=== PATIENT | male | born 1985 | race Caucasian/White ===

== ENCOUNTER 2020-07-29 18:45 | Emergency (ER) | payer OTHER ==
[2020-07-29 18:53] VITALS: RESP 18; TEMP 98.5
[2020-07-29] MEDS ORDERED: LIDOCAINE 1% INJ 10MG/ML (20 ML MDV) SQ ONE (19:11)
--- NOTE | 2020-07-29 19:44 | CT ---
EXAMINATION TYPE: CT brain cspine wo con DATE OF EXAM: 07/29/2020 COMPARISON: None HISTORY: fall, right orbital laceration, headache CT DLP: 1338.5 mGycm Automated exposure control for dose reduction was used. Ventricles and sulci appear normal. There is no mass effect nor midline shift. There is no sign of in tracranial hemorrhage. The calvarium is intact. There is no evidence of cerebral edema. Sella turcica appears normal. There is normal aeration of the mastoid sinuses. Cervical vertebra have normal spacing and alignment. Posterior elements are intact. Facet joints are normal. Prevertebral soft tissues appear normal. The tongue appears normal. Epiglottis is normal. There is normal aeration of the paranasal sinuses. There is no evidence of orbital mass. Orbital jessy ins are intact. Zygomatic arches appear normal. IMPRESSION: Negative CT scan of the brain. Negative CT scan cervical spine.
--- NOTE | 2020-07-29 20:00 | ED ---
Fall HPI - General Chief Complaint: Fall Stated Complaint: fall, facial lac Time Seen by Provider: 07/29/20 18:58 Source: patient Mode of arrival: ambulatory - History of Present Illness Initial Comments: 34-year-old male presents to emergency department with a chief complaint of laceration. Patient reports she fell on the ice earlier today. Patient states he slipped and injured the right side of his head. He denies any loss of consciousness but does feels occasional light headedness but no dizziness. He denies any blurry vision, once the weakness paresthesias. Also reports a laceration to the right periorbital region. Denies taking medication to alleviate the symptoms. Denies alleviating factors. Tetanus up-to-date. - Related Data Allergies Allergy/AdvReac Type Severity Reaction Status Date / Time No Known Allergies Allergy Verified 07/29/20 18:53 Review of Systems ROS Statement: Those systems with pertinent positive or pertinent negative responses have been documented in the HPI. ROS Other: All systems not noted in ROS Statement are negative. Past Medical History Additional Past Medical History / Comment(s): migrains History of Any Multi-Drug Resistant Organisms: None Reported Past Surgical History: No Surgical Hx Reported Past Psychological History: Anxiety, Depression Smoking Status: Current every day smoker Past Alcohol Use History: None Reported Past Drug Use History: None Reported General Exam Limitations: no limitations General appearance: alert, in no apparent distress Head exam: Present: normocephalic, normal inspection. Absent: atraumatic (small laceration measuring approximately 2 cm in length in the right periorbital region), other (negative Felix sign, raccoon eyes, hemotympanum.) Eye exam: Present: normal appearance, PERRL, EOMI Pupils: Present: normal accommodation ENT exam: Present: normal exam, normal oropharynx, mucous membranes moist, TM's normal bilaterally, normal external ear exam Neck exam: Present: normal inspection, full ROM. Absent: tenderness Respiratory exam: Present: normal lung sounds bilaterally. Absent: respiratory distress Cardiovascular Exam: Present: regular rate, normal rhythm, normal heart sounds Extremities exam: Present: normal inspection, full ROM. Absent: tenderness Back exam: Present: normal inspection, full ROM. Absent: tenderness Neurological exam: Present: alert, oriented X3 Psychiatric exam: Present: normal affect, normal mood Skin exam: Present: warm, dry, intact, normal color Course Vital Signs 07/29/20 18:50 Temperature 98.5 F Pulse Rate 75 Respiratory 18 Rate Blood Pressure 145/93 O2 Sat by Pulse 98 Oximetry Procedures - Laceration Laceration #1 Consent Obtained: verbal consent Indication: laceration Site: scalp Size (cm): 2 Description: linear, clean Depth: simple, single layer Sedation/Analgesia: none Anesthetic Used: lidocaine 1% Anesthesia Technique: local infiltration Amount (mls): 5 Pre-repair: irrigated extensively, deep structures intact Type of Sutures: nylon Size of Sutures: 4-0 Number of Sutures: 3 Technique: simple, interrupted Patient Tolerated Procedure: well, no complications Medical Decision Making - Medical Decision Making 34-year-old male presents to emergency department with chief complaint of head injury. Laceration site was thoroughly irrigated and repaired with [address] brace is unremarkable. Patient advised to return for suture well. Case discussed with Disposition Clinical Impression: Fall, Laceration, Head injury Disposition: HOME SELF-CARE Condition: Stable Instructions (If sedation given, give patient instructions): Laceration (DC), Care For Your Stitches (DC) Additional Instructions: Please return to the emergency room in 7 days to have sutures removed. Please watch for any signs of infection which may include increased pain, swelling, redness, fever or chills. Please return to emergency room for any signs of infection do occur. Please use clean soap and water over the area to prevent scabbing over your stitches. Please leave wound covered for the first 24-48 hours and then leave wound open to air. Please return to the emergency room for any other concerns. Is patient prescribed a controlled substance at d/c from ED?: No Referrals: Lei Potter MD [Primary Care Provider] - 1-2 days Time of Disposition: 20:00
[2020-07-29 20:15] VITALS: BP 129/86; PULSE 62
== END 2020-07-29 20:15 | disposition home or self-care (01) ==
LOC: EC 18:45
DX: S01.81XA Laceration without foreign body of other part of head, initial encounter (principal); F17.200 Nicotine dependence, unspecified, uncomplicated; W00.0XXA Fall on same level due to ice and snow, initial encounter
CPT/HCPCS: 99283; 12001; 72125; 70450; J2001

== ENCOUNTER 2020-12-06 10:38 | Emergency (ER) | payer OTHER ==
[2020-12-06 10:42] VITALS: BP 133/91; PULSE 85; RESP 20; TEMP 97.5
--- NOTE | 2020-12-06 10:53 | ED ---
Recheck HPI - General Chief Complaint: Recheck/Abnormal Lab/Rx Stated Complaint: medical clearance Time Seen by Provider: 12/06/20 10:45 Source: patient, RN notes reviewed Mode of arrival: ambulatory Limitations: no limitations - History of Present Illness Initial Comments: A she is a 35-year-old male brought in by the athlete manager to be medically cleared for j ail. Patient was handcuffed while laying in bed in no apparent distress or pain. He denied any pain or other symptoms. He was a well-appearing 35-year-old male who was well-hydrated. He did have one small abrasion to the right side of his neck that was nonbleeding with no signs or symptoms of infection. Patient did appear to be emotionally distressed and upset that he was going to group home. He denied any chest pain shortness of breath headache nausea vomiting diarrhea constipation fever fatigue chills abdominal pain lightheadedness dizziness weakness. - Related Data Allergies Allergy/AdvReac Type Severity Reaction Status Date / Time acetaminophen [From Tylenol] Allergy Rash/Hives Verified 12/06/20 10:42 Review of Systems ROS Statement: Those systems with pertinent positive or pertinent negative responses have been documented in the HPI. ROS Other: All systems not noted in ROS Statement are negative. Past Medical History Past Medical History: Asthma Additional Past Medical History / Comment(s): migrains History of Any Multi-Drug Resistant Organisms: None Reported Past Surgical History: No Surgical Hx Reported Past Psychological History: Anxiety, Depression Smoking Status: Current every day smoker Past Alcohol Use History: None Reported Past Drug Use History: None Reported General Exam Limitations: no limitations General appearance: alert, in no apparent distress Head exam: Present: atraumatic, normocephalic, normal inspection Eye exam: Present: normal appearance, PERRL, EOMI. Absent: scleral icterus, conjunctival injection, periorbital swelling Neck exam: Present: normal inspection, full ROM, other (Small 1 cm abrasion to the anterior right side of the neck, no signs or symptoms of infection.). Ab sent: lymphadenopathy Respiratory exam: Present: normal lung sounds bilaterally. Absent: respiratory distress, wheezes, rales, rhonchi, stridor Cardiovascular Exam: Present: regular rate, normal rhythm, normal heart sounds. Absent: systolic murmur, diastolic murmur, rubs, gallop, clicks GI/Abdominal exam: Present: soft, normal bowel sounds. Absent: distended, tenderness, guarding, rebound, rigid Extremities exam: Present: normal inspection, full ROM, normal capillary refill. Absent: tenderness, pedal edema, joint swelling, calf tenderness Neurological exam: Present: alert, oriented X3 Psychiatric exam: Present: normal affect, normal mood Skin exam: Present: warm, dry, intact, normal color. Absent: rash Course Vital Signs 12/06/20 10:40 Temperature 97.5 F L Pulse Rate 85 Respiratory 20 Rate Blood Pressure 133/91 O2 Sat by Pulse 98 Oximetry Medical Decision Making - Medical Decision Making 35-year-old male brought in by the police to get evaluated for clearance for group home. Physical exam was within normal limits inpatient was not complaining of any pain, symptoms. Case discussed with Dr. Mccloud, patient can be discharged into police custody. Disposition Clinical Impression: Neck abrasion Disposition: HOME SELF-CARE Condition: Stable Instructions (If sedation given, give patient instructions): Abrasion (ED) Additional Instructions: Please return to the Emergency Department if symptoms worsen or any other concerns. Is patient prescribed a controlled substance at d/c from ED?: No Referrals: Lei Potter MD [Primary Care Provider] - 1-2 days Time of Disposition: 10:53
== END 2020-12-06 11:06 | disposition home or self-care (01) ==
LOC: EC 10:38
DX: S10.91XA Abrasion of unspecified part of neck, initial encounter (principal); J45.909 Unspecified asthma, uncomplicated; F41.9 Anxiety disorder, unspecified; F32.9 Major depressive disorder, single episode, unspecified; F17.200 Nicotine dependence, unspecified, uncomplicated; X58.XXXA Exposure to other specified factors, initial encounter
CPT/HCPCS: 99283